=== PATIENT | female | born 1955 | race African-American/Black ===

== ENCOUNTER → 2024-08-18 09:42 | Outpatient (REF) | payer OTHER, SELFPAY | LOC: WDC 09:42 | PROVIDERS: ATTENDING PHYSICIAN Internal Medicine | DX: Z12.31 Encounter for screening mammogram for malignant neoplasm of breast (principal) | CPT/HCPCS: 77063; 77067 ==

== ENCOUNTER → 2024-10-05 08:14 | Outpatient (REF) | payer OTHER, SELFPAY | LOC: HWRAD 08:14 | PROVIDERS: ATTENDING PHYSICIAN Internal Medicine | DX: Z87.01 Personal history of pneumonia (recurrent) (principal); M81.0 Age-related osteoporosis without current pathological fracture | CPT/HCPCS: 71046 ==